=== PATIENT | male | born 1970 | race Caucasian/White ===

== ENCOUNTER → 2017-04-24 | Outpatient (CLI) | payer OTHER ==
[~2017-04-24] MED LIST: CALCIUM CITRATE1 TA6 PO; CITALOPRAM HYDR20 MG PO; DEPRESSION PILL; ETODOLAC400 MG PO; KEFLEX500 MG PO; LIDEX0.05% T; LISINOPRIL20 MG PO; MOTRIN800 MG PO; NAPROSYN500 MG PO; TRAMADOL HCL50 MG PO; ULTRAM50 MG PO; VITAMIN D50000 I3 PO
[2017-04-24 11:10] LABS: BASO % 0.5 % (0.0-1.0); EOS # 0.5 10*3/uL (0.0-0.4); EOS % 6.6 % (1.0-4.0); HEMATOCRIT 41.9 % (42.0-52.0); HEMOGLOBIN 14.4 g/dl (14.0-18.0); LYMPH # 1.9 10*3/uL (1.3-4.4); LYMPH % 24.6 % (27.0-41.0); MEAN CELL VOLUME 93.7 fl (80.0-94.0); MEAN CORPUSCULAR HGB 32.2 pg (27.0-31.0); MEAN CORPUSCULAR HGB CONC 34.4 g/dl (33.0-37.0); MEAN PLATELET VOLUME 11.1 fl (9.6-12.3); MONO # 0.6 10*3/uL (0.1-1.0); MONO % 7.5 % (3.0-9.0); NEUT # 4.6 10*3/uL (2.3-7.9); NEUT % 60.4 % (47.0-73.0); PLATELET COUNT AUTOMATED 206 10*3/uL (130-400); RED BLOOD COUNT 4.47 10*6/uL (4.50-5.90); WHITE BLOOD COUNT 7.6 10*3/uL (4.8-10.8)
[2017-04-24 11:33] LABS: ALBUMIN 4.1 gm/dl (3.1-4.5); BUN 18 mg/dl (7-24); CHLORIDE 107 mmol/L (98-107); POTASSIUM 4.8 mmol/L (3.5-5.1); SODIUM 139 mmol/L (136-145)
[2017-04-24 11:39] LABS: ALKALINE PHOSPHATASE 42 U/L (45-117); CREATININE 1.23 mg/dL (0.70-1.30); SGOT/AST 10 IU/L (3-35); SGPT/ALT 16 U/L (12-78); TOTAL PROTEIN 7.7 gm/dL (6.4-8.2)
== END | disposition home or self-care (01) ==
LOC: LAB 10:31 → CT 11:00
PROVIDERS: Urology
DX: Z12.5 Encounter for screening for malignant neoplasm of prostate (principal); K44.9 Diaphragmatic hernia without obstruction or gangrene; K76.0 Fatty (change of) liver, not elsewhere classified; K42.9 Umbilical hernia without obstruction or gangrene; I10 Essential (primary) hypertension; D40.0 Neoplasm of uncertain behavior of prostate

== ENCOUNTER 2017-09-10 05:07 | Emergency (ER) | payer OTHER ==
[~2017-09-10] VITALS: Ht 185.4 cm; Wt 93.0 kg
[2017-09-10] MEDS ORDERED: MELOXICAM15 MG PO (05:23)
[2017-09-10] MEDS ORDERED: CYCLOBENZAPRINE10 MG PO (05:24)
[2017-09-10] MEDS ORDERED: ATENOLOL50 M1 PO (05:24)
[2017-09-10] MEDS ORDERED: OYSTER SHELL C1 EAC3 PO (05:25)
[2017-09-10] MEDS ORDERED: FINASTERIDE5 M1 PO (05:26)
[2017-09-10] MEDS ORDERED: TAMSULOSIN HCL0.4 MG PO (05:26)
[2017-09-10] MEDS ORDERED: OMEGA-31000 M1 PO (05:26)
[2017-09-10] MEDS ORDERED: AMOXICILLIN500 M2 PO (05:54)
[2017-09-10] MEDS ORDERED: TAMIFLU 75MG CA75 MG PO (06:13)
== END 2017-09-10 06:27 | disposition home or self-care (01) ==
LOC: ED 05:07
DX: J09.X2 Influenza due to identified novel influenza A virus with other respiratory manifestations (principal); J40 Bronchitis, not specified as acute or chronic; J32.9 Chronic sinusitis, unspecified

== ENCOUNTER → 2017-10-22 | Outpatient (CLI) | payer OTHER ==
[~2017-10-22] MED LIST changes: +AMOXICILLIN500 M2 PO; +ATENOLOL50 M1 PO; +CYCLOBENZAPRINE10 MG PO; +FINASTERIDE5 M1 PO; +MELOXICAM15 MG PO; +OMEGA-31000 M1 PO; +OYSTER SHELL C1 EAC3 PO; +TAMIFLU 75MG CA75 MG PO; +TAMSULOSIN HCL0.4 MG PO
== END | disposition home or self-care (01) ==
LOC: MRI 13:00
DX: M51.84 Other intervertebral disc disorders, thoracic region (principal)

== ENCOUNTER → 2017-11-16 | Outpatient (CLI) | payer OTHER ==
[2017-11-16 14:31] LABS: BASO % 0.5 % (0.0-1.0); EOS # 0.1 10*3/uL (0.0-0.4); EOS % 0.8 % (1.0-4.0); HEMATOCRIT 44.8 % (42.0-52.0); HEMOGLOBIN 14.7 g/dl (14.0-18.0); LYMPH # 1.8 10*3/uL (1.3-4.4); LYMPH % 23.8 % (27.0-41.0); MEAN CELL VOLUME 92.4 fl (80.0-94.0); MEAN CORPUSCULAR HGB 30.3 pg (27.0-31.0); MEAN CORPUSCULAR HGB CONC 32.8 g/dl (33.0-37.0); MEAN PLATELET VOLUME 11.9 fl (9.6-12.3); MONO # 0.5 10*3/uL (0.1-1.0); MONO % 7.2 % (3.0-9.0); NEUT # 4.9 10*3/uL (2.3-7.9); NEUT % 67.2 % (47.0-73.0); PLATELET COUNT AUTOMATED 194 10*3/uL (130-400); RED BLOOD COUNT 4.85 10*6/uL (4.50-5.90); RED CELL DISTRI WIDTH 12.7 % (0-14.5); WHITE BLOOD COUNT 7.4 10*3/uL (4.8-10.8)
[2017-11-16 14:58] LABS: ALBUMIN 4.1 gm/dl (3.1-4.5); ALKALINE PHOSPHATASE 57 U/L (45-117); BUN 10 mg/dl (7-24); CHLORIDE 105 mmol/L (98-107); CHOLESTEROL 212 mg/dL (<200); CREATININE 1.25 mg/dL (0.70-1.30); HDL CHOLESTEROL 37 mg/dl (40-60); LDL CHOLESTEROL 137 mg/dL (9-159); POTASSIUM 4.5 mmol/L (3.5-5.1); SGOT/AST 18 IU/L (3-35); SGPT/ALT 28 U/L (12-78); SODIUM 141 mmol/L (136-145); TOTAL PROTEIN 7.8 gm/dL (6.4-8.2); TRIGLYCERIDES 192 mg/dl (<150); VLDL CHOLESTEROL 38 mg/dL (6-40)
[2017-11-16 15:05] LABS: THYROID STIM HORMONE (HS) 0.665 uIU/ml (0.358-4.75)
== END | disposition home or self-care (01) ==
LOC: LAB 14:02
PROVIDERS: Internal Medicine
DX: E11.9 Type 2 diabetes mellitus without complications (principal); E55.9 Vitamin D deficiency, unspecified; E78.2 Mixed hyperlipidemia; I10 Essential (primary) hypertension

== ENCOUNTER → 2017-12-18 | Outpatient (CLI) | payer OTHER | END | disposition home or self-care (01) | LOC: RAD 15:39 | DX: M54.5 Low back pain (principal); M53.84 Other specified dorsopathies, thoracic region; R06.00 Dyspnea, unspecified ==

== ENCOUNTER 2018-01-28 11:15 | Emergency (ER) | payer OTHER ==
[~2018-01-28] VITALS: Ht 185.4 cm; Wt 99.8 kg
[2018-01-28] MEDS ORDERED: IBUPROFEN600 MG PO (12:31)
[2018-01-28] MEDS ORDERED: DOXYCYCLINE100 M3 PO (12:31)
== END 2018-01-28 12:31 | disposition home or self-care (01) ==
LOC: ED 11:15
DX: L60.0 Ingrowing nail (principal); M79.674 Pain in right toe(s); Z79.899 Other long term (current) drug therapy

== ENCOUNTER 2019-10-08 01:40 | Emergency (ER) | payer OTHER ==
[~2019-10-08] VITALS: Ht 185.4 cm; Wt 98.9 kg
[~2019-10-08 01:40] MED LIST changes: +DOXYCYCLINE100 M3 PO; +IBUPROFEN600 MG PO
[2019-10-08 02:19] LABS: BASO % 0.1 % (0.0-1.0); EOS % 0.5 % (1.0-4.0); HEMATOCRIT 45.2 % (42.0-52.0); HEMOGLOBIN 14.9 g/dl (14.0-18.0); LYMPH # 0.9 10*3/uL (1.3-4.4); LYMPH % 11.2 % (27.0-41.0); MEAN CELL VOLUME 95.4 fl (80.0-94.0); MEAN CORPUSCULAR HGB 31.4 pg (27.0-31.0); MEAN PLATELET VOLUME 11.4 fl (9.6-12.3); MONO # 0.8 10*3/uL (0.1-1.0); MONO % 9.6 % (3.0-9.0); NEUT # 6.3 10*3/uL (2.3-7.9); NEUT % 78.2 % (47.0-73.0); PLATELET COUNT AUTOMATED 152 10*3/uL (130-400); RED BLOOD COUNT 4.74 10*6/uL (4.50-5.90); RED CELL DISTRI WIDTH 12.5 % (0-14.5)
[2019-10-08 02:35] LABS: ALBUMIN 3.7 gm/dl (3.1-4.5); ALKALINE PHOSPHATASE 43 U/L (45-117); BUN 13 mg/dl (7-24); CHLORIDE 102 mmol/L (98-107); CREATININE 1.48 mg/dL (0.70-1.30); SGOT/AST 18 IU/L (3-35); SGPT/ALT 30 U/L (12-78); SODIUM 137 mmol/L (136-145); TOTAL PROTEIN 7.5 gm/dL (6.4-8.2)
[2019-10-08 02:55] LABS: TROPONIN I < 0.015 ng/ml (<0.045)
[2019-10-08] MEDS ORDERED: OMNICEF300 MG PO (03:55)
[2019-10-08] MEDS ORDERED: VENT7GM NEB (03:55)
[2019-10-08] MEDS ORDERED: Motrin,Rufen400 MG PO (03:55)
== END 2019-10-08 04:26 | disposition home or self-care (01) ==
LOC: ED 01:40
PROVIDERS: Emergency Medicine Emergency Medical Services
DX: J20.9 Acute bronchitis, unspecified (principal); I10 Essential (primary) hypertension; Z79.899 Other long term (current) drug therapy

== ENCOUNTER 2020-11-01 18:59 | Emergency (ER) | payer OTHER ==
[~2020-11-01] VITALS: Wt 93.9 kg
[~2020-11-01 18:59] MED LIST changes: +Motrin,Rufen400 MG PO; +OMNICEF300 MG PO; +VENT7GM NEB
== END 2020-11-01 19:54 | disposition home or self-care (01) ==
LOC: ED 18:59
DX: S61.210A Laceration without foreign body of right index finger without damage to nail, initial encounter (principal); I10 Essential (primary) hypertension; Z79.899 Other long term (current) drug therapy; Z98.890 Other specified postprocedural states; X58.XXXA Exposure to other specified factors, initial encounter; Y93.89 Activity, other specified; Y92.89 Other specified places as the place of occurrence of the external cause; Y99.8 Other external cause status

== ENCOUNTER → 2021-08-22 | Outpatient (CLI) | payer OTHER | END | disposition home or self-care (01) | LOC: RAD 12:39 | PROVIDERS: ATTEND Nurse Practitioner Primary Care | DX: M41.84 Other forms of scoliosis, thoracic region (principal); M48.04 Spinal stenosis, thoracic region; G89.29 Other chronic pain ==

== ENCOUNTER 2021-08-30 21:29 | Emergency (ER) | payer OTHER ==
[~2021-08-30] VITALS: Ht 182.8 cm; Wt 113.4 kg
[2021-08-30 21:43] LABS: BASO % 0.3 % (0.0-1.0); EOS # 0.4 10*3/uL (0.0-0.4); EOS % 4.7 % (1.0-4.0); HEMATOCRIT 46.5 % (42.0-52.0); LYMPH # 2.8 10*3/uL (1.3-4.4); LYMPH % 31.3 % (27.0-41.0); MEAN CELL VOLUME 91.4 fl (80.0-94.0); MEAN CORPUSCULAR HGB 31.6 pg (27.0-31.0); MEAN CORPUSCULAR HGB CONC 34.6 g/dl (33.0-37.0); MEAN PLATELET VOLUME 10.9 fl (9.6-12.3); MONO # 0.8 10*3/uL (0.1-1.0); MONO % 9.4 % (3.0-9.0); NEUT # 4.7 10*3/uL (2.3-7.9); PLATELET COUNT AUTOMATED 223 10*3/uL (130-400); RED BLOOD COUNT 5.09 10*6/uL (4.50-5.90); RED CELL DISTRI WIDTH 12.4 % (0-14.5); WHITE BLOOD COUNT 8.8 10*3/uL (4.8-10.8)
[2021-08-30 21:56] LABS: ACT PARTIAL THROMBO TIME 27.4 SECONDS (20.0-32.1)
[2021-08-30 22:00] LABS: ALBUMIN 3.7 gm/dl (3.1-4.5); ALKALINE PHOSPHATASE 88 U/L (45-117); BUN 8 mg/dl (7-24); CHLORIDE 109 mmol/L (98-107); CREATININE 1.05 mg/dL (0.70-1.30); POTASSIUM 3.1 mmol/L (3.5-5.1); SGOT/AST 13 IU/L (3-35); SGPT/ALT 18 U/L (12-78); SODIUM 140 mmol/L (136-145); TOTAL PROTEIN 7.4 gm/dL (6.4-8.2)
== END 2021-08-31 10:18 | disposition home or self-care (01) ==
LOC: ED 21:29
PROVIDERS: Emergency Medicine
DX: R07.89 Other chest pain (principal); F10.920 Alcohol use, unspecified with intoxication, uncomplicated; E87.6 Hypokalemia; I10 Essential (primary) hypertension; Z79.899 Other long term (current) drug therapy; Y90.9 Presence of alcohol in blood, level not specified

== ENCOUNTER 2022-04-12 01:03 | Emergency (ER) | payer OTHER ==
[~2022-04-12] VITALS: Ht 185.4 cm; Wt 81.6 kg
[2022-04-12] MEDS ORDERED: CYCLOBENZAPRINE10 MG PO (04:38)
== END 2022-04-12 04:46 | disposition home or self-care (01) ==
LOC: ED 01:03
DX: S39.012A Strain of muscle, fascia and tendon of lower back, initial encounter (principal); Z79.899 Other long term (current) drug therapy; X50.9XXA Other and unspecified overexertion or strenuous movements or postures, initial encounter; Y93.89 Activity, other specified; Y92.89 Other specified places as the place of occurrence of the external cause; Y99.8 Other external cause status

== ENCOUNTER 2022-04-25 22:58 | Emergency (ER) | payer OTHER ==
[~2022-04-25] VITALS: Ht 185.4 cm; Wt 83.5 kg
== END 2022-04-26 00:11 | disposition home or self-care (01) ==
LOC: ED 22:58
DX: M17.12 Unilateral primary osteoarthritis, left knee (principal); Z79.2 Long term (current) use of antibiotics; Z79.899 Other long term (current) drug therapy

== ENCOUNTER 2022-05-20 03:18 | Emergency (ER) | payer OTHER ==
[~2022-05-20] VITALS: Ht 185.4 cm; Wt 81.2 kg
[2022-05-20] MEDS ORDERED: ONDANSETRON4 MG SL (04:32)
[2022-05-20] MEDS ORDERED: CEPACOL SORE T1 EACH MM (04:32)
[2022-05-20] MEDS ORDERED: PAXLOVID PO (04:32)
== END 2022-05-20 04:37 | disposition home or self-care (01) ==
LOC: ED 03:18
DX: U07.1 COVID-19 (principal); Z79.899 Other long term (current) drug therapy

== ENCOUNTER 2022-08-18 22:06 | Emergency (ER) | payer OTHER ==
[~2022-08-18] VITALS: Ht 185.4 cm; Wt 83.9 kg
[~2022-08-18 22:06] MED LIST changes: +CEPACOL SORE T1 EACH MM; +ONDANSETRON4 MG SL; +PAXLOVID PO
[2022-08-18] MEDS ORDERED: NAPROXEN250 MG PO (23:09)
== END 2022-08-18 23:16 | disposition home or self-care (01) ==
LOC: ED 22:06
DX: S90.111A Contusion of right great toe without damage to nail, initial encounter (principal); Z98.890 Other specified postprocedural states; W20.8XXA Other cause of strike by thrown, projected or falling object, initial encounter; Y93.89 Activity, other specified; Y92.89 Other specified places as the place of occurrence of the external cause; Y99.8 Other external cause status

== ENCOUNTER 2022-11-06 00:55 | Emergency (ER) | payer OTHER ==
[~2022-11-06] VITALS: Wt 83.9 kg
[~2022-11-06 00:55] MED LIST changes: +NAPROXEN250 MG PO
[2022-11-06] MEDS ORDERED: IBU800 M2 PO (01:13)
== END 2022-11-06 01:35 | disposition home or self-care (01) ==
LOC: ED 00:55
DX: S86.912A Strain of unspecified muscle(s) and tendon(s) at lower leg level, left leg, initial encounter (principal); Z79.899 Other long term (current) drug therapy; F17.200 Nicotine dependence, unspecified, uncomplicated; X50.9XXA Other and unspecified overexertion or strenuous movements or postures, initial encounter; Y93.89 Activity, other specified; Y92.89 Other specified places as the place of occurrence of the external cause; Y99.8 Other external cause status

== ENCOUNTER 2022-12-05 22:43 | Emergency (ER) | payer OTHER ==
[~2022-12-05 22:43] MED LIST changes: +IBU800 M2 PO
[2022-12-06 03:24] LABS: BASO % 0.4 % (0.0-1.0); EOS # 0.2 10*3/uL (0.0-0.4); EOS % 4.8 % (1.0-4.0); HEMATOCRIT 47.6 % (42.0-52.0); LYMPH % 40.8 % (27.0-41.0); MEAN CELL VOLUME 92.8 fl (80.0-94.0); MEAN CORPUSCULAR HGB 31.6 pg (27.0-31.0); MEAN PLATELET VOLUME 10.7 fl (9.6-12.3); MONO # 0.4 10*3/uL (0.1-1.0); MONO % 7.7 % (3.0-9.0); NEUT # 2.2 10*3/uL (2.3-7.9); NEUT % 46.1 % (47.0-73.0); PLATELET COUNT AUTOMATED 186 10*3/uL (130-400); RED BLOOD COUNT 5.13 10*6/uL (4.50-5.90); RED CELL DISTRI WIDTH 12.6 % (0-14.5); WHITE BLOOD COUNT 4.8 10*3/uL (4.8-10.8)
[2022-12-06 03:34] LABS: INTERNATIONAL NORM RATIO 1.1 (2.0-3.5)
[2022-12-06 03:42] LABS: ALKALINE PHOSPHATASE 56 U/L (46-116); CHLORIDE 108 mmol/L (98-107); ETHYL ALCOHOL 201.7 mg/dl (<3); LIPASE 42 U/L (12-53); POTASSIUM 4.3 mmol/L (3.4-5.1); SGPT/ALT 50 U/L (10-49); TOTAL PROTEIN 6.8 gm/dL (6.0-8.0)
[2022-12-06 03:43] LABS: BUN < 5 mg/dl (9-23)
[2022-12-06 04:25] LABS: BILIRUBIN Negative (Negative); BLOOD Negative (Negative); CLARITY Clear (Clear); COLOR Yellow (Yellow); GLUCOSE Negative (Negative); KETONE Negative (Negative); LEUKO ESTERASE Negative (Negative); NITRITE Negative (Negative); PH 5.5 (4.5-8.0); SPECIFIC GRAVITY <= 1.005 (1.001-1.030); UROBILINOGEN 0.2 E.U./dl (0.0-1.0)
[2022-12-06] MEDS ORDERED: FLOMAX0.4 MG PO (04:26)
[2022-12-06] MEDS ORDERED: CEFDINIR300 MG PO (04:26)
[2022-12-06 04:31] LABS: MUCOUS 1+; RBC 0-2 rbc/hpf (0-2); WBC 0-2 wbc/hpf (0-5)
== END 2022-12-06 04:44 | disposition home or self-care (01) ==
LOC: ED 22:43
PROVIDERS: Emergency Medicine
DX: M54.50 Low back pain, unspecified (principal); F10.129 Alcohol abuse with intoxication, unspecified; R33.9 Retention of urine, unspecified; Z79.899 Other long term (current) drug therapy; Y90.9 Presence of alcohol in blood, level not specified; W18.39XA Other fall on same level, initial encounter; Y93.89 Activity, other specified; Y92.89 Other specified places as the place of occurrence of the external cause; Y99.8 Other external cause status

== ENCOUNTER 2023-02-26 22:03 | Emergency (ER) | payer OTHER ==
[~2023-02-26] VITALS: Ht 185.4 cm; Wt 83.9 kg
[~2023-02-26 22:03] MED LIST changes: +CEFDINIR300 MG PO; +FLOMAX0.4 MG PO
== END 2023-02-27 01:05 | disposition home or self-care (01) ==
LOC: ED 22:03
DX: S86.912A Strain of unspecified muscle(s) and tendon(s) at lower leg level, left leg, initial encounter (principal); M17.12 Unilateral primary osteoarthritis, left knee; I10 Essential (primary) hypertension; Z98.890 Other specified postprocedural states; X58.XXXA Exposure to other specified factors, initial encounter; Y93.89 Activity, other specified; Y92.009 Unspecified place in unspecified non-institutional (private) residence as the place of occurrence of the external cause; Y99.8 Other external cause status

== ENCOUNTER 2023-03-15 22:27 | Emergency (ER) | payer OTHER ==
[~2023-03-15] VITALS: Ht 185.4 cm; Wt 84.4 kg
[2023-03-16 00:08] LABS: BASO % 0.4 % (0.0-1.0); EOS # 0.3 10*3/uL (0.0-0.4); EOS % 4.1 % (1.0-4.0); LYMPH # 1.6 10*3/uL (1.3-4.4); LYMPH % 22.9 % (27.0-41.0); MEAN CELL VOLUME 92.9 fl (80.0-94.0); MEAN CORPUSCULAR HGB 32.1 pg (27.0-31.0); MEAN CORPUSCULAR HGB CONC 34.6 g/dl (33.0-37.0); MEAN PLATELET VOLUME 11.2 fl (9.6-12.3); MONO # 0.6 10*3/uL (0.1-1.0); MONO % 8.5 % (3.0-9.0); NEUT # 4.5 10*3/uL (2.3-7.9); NEUT % 63.7 % (47.0-73.0); PLATELET COUNT AUTOMATED 176 10*3/uL (130-400); RED BLOOD COUNT 4.95 10*6/uL (4.50-5.90); RED CELL DISTRI WIDTH 13.2 % (0-14.5)
[2023-03-16 00:31] LABS: ALKALINE PHOSPHATASE 70 U/L (46-116); CHLORIDE 106 mmol/L (98-107); POTASSIUM 3.3 mmol/L (3.4-5.1); SGPT/ALT 17 U/L (10-49); TOTAL PROTEIN 6.9 gm/dL (6.0-8.0)
[2023-03-16 00:34] LABS: BUN < 5 mg/dl (9-23)
== END 2023-03-16 03:30 | disposition home or self-care (01) ==
LOC: ED 22:27
PROVIDERS: Emergency Medicine
DX: F43.9 Reaction to severe stress, unspecified (principal); F43.29 Adjustment disorder with other symptoms; I10 Essential (primary) hypertension; Z86.16 Personal history of COVID-19; E87.6 Hypokalemia; Z98.890 Other specified postprocedural states

== ENCOUNTER → 2023-06-01 | Outpatient (CLI) | payer OTHER | END | disposition home or self-care (01) | LOC: CARD 00:39 | PROVIDERS: ATTEND Internal Medicine Cardiovascular Disease | DX: R07.9 Chest pain, unspecified (principal) ==

== ENCOUNTER 2023-07-09 18:04 | Emergency (ER) | payer OTHER ==
[~2023-07-09] VITALS: Ht 185.4 cm; Wt 77.1 kg
[~2023-07-09 18:04] MED LIST changes: +LIPITOR40 MG PO; +TENORMIN25 M1 PO
[2023-07-09] MEDS ORDERED: ZITHROMAX250 MG PO (20:19)
== END 2023-07-09 20:23 | disposition home or self-care (01) ==
LOC: ED 18:04
DX: J40 Bronchitis, not specified as acute or chronic (principal); R11.10 Vomiting, unspecified; I10 Essential (primary) hypertension; E78.00 Pure hypercholesterolemia, unspecified; Z98.890 Other specified postprocedural states; Z20.822 Contact with and (suspected) exposure to COVID-19; F17.290 Nicotine dependence, other tobacco product, uncomplicated

== ENCOUNTER 2023-07-11 21:24 | Emergency (ER) | payer OTHER ==
[~2023-07-11] VITALS: Ht 185.4 cm; Wt 77.1 kg
[~2023-07-11 21:24] MED LIST changes: +ZITHROMAX250 MG PO
[2023-07-11 22:14] LABS: BASO % 0.3 % (0.0-1.0); EOS # 0.1 10*3/uL (0.0-0.4); EOS % 0.9 % (1.0-4.0); HEMATOCRIT 46.1 % (42.0-52.0); LYMPH % 11.1 % (27.0-41.0); MEAN CELL VOLUME 91.3 fl (80.0-94.0); MEAN CORPUSCULAR HGB 32.1 pg (27.0-31.0); MEAN CORPUSCULAR HGB CONC 35.1 g/dl (33.0-37.0); MEAN PLATELET VOLUME 10.2 fl (9.6-12.3); MONO # 1.1 10*3/uL (0.1-1.0); MONO % 11.9 % (3.0-9.0); NEUT # 6.8 10*3/uL (2.3-7.9); NEUT % 75.1 % (47.0-73.0); PLATELET COUNT AUTOMATED 299 10*3/uL (130-400); RED BLOOD COUNT 5.05 10*6/uL (4.50-5.90); RED CELL DISTRI WIDTH 12.1 % (0-14.5)
[2023-07-11 22:25] LABS: ACT PARTIAL THROMBO TIME 28.5 SECONDS (20.0-32.1)
[2023-07-11 22:35] LABS: ALKALINE PHOSPHATASE 51 U/L (46-116); BUN 12 mg/dl (9-23); CHLORIDE 103 mmol/L (98-107); LIPASE 46 U/L (12-53); POTASSIUM 3.3 mmol/L (3.4-5.1); SGPT/ALT 19 U/L (5-49)
[2023-07-11 22:36] LABS: ETHYL ALCOHOL < 3.0 mg/dl (<3)
[2023-07-12 02:09] LABS: BILIRUBIN Negative (Negative); BLOOD Negative (Negative); CLARITY Clear (Clear); COLOR Dark Yellow (Yellow); GLUCOSE Negative (Negative); KETONE 2+ (Negative); LEUKO ESTERASE Negative (Negative); NITRITE Negative (Negative); PH 5.5 (4.5-8.0); SPECIFIC GRAVITY >= 1.030 (1.001-1.030)
[2023-07-12 02:29] LABS: CALCIUM OXALATE CRYSTALS Trace; RBC 0-2 rbc/hpf (0-2); WBC 0-2 wbc/hpf (0-5)
== END 2023-07-12 03:40 | disposition short-term general hospital (02) ==
LOC: ED 21:24
PROVIDERS: Internal Medicine
DX: K56.609 Unspecified intestinal obstruction, unspecified as to partial versus complete obstruction (principal); R11.2 Nausea with vomiting, unspecified; I10 Essential (primary) hypertension; E78.00 Pure hypercholesterolemia, unspecified; Z98.890 Other specified postprocedural states

== ENCOUNTER 2023-10-01 23:00 | Emergency (ER) | payer OTHER ==
[~2023-10-01] VITALS: Ht 170.1 cm; Wt 90.7 kg
[2023-10-02 00:44] LABS: BASO % 0.5 % (0.0-1.0); EOS # 0.3 10*3/uL (0.0-0.4); EOS % 4.9 % (1.0-4.0); HEMATOCRIT 44.4 % (42.0-52.0); LYMPH # 2.2 10*3/uL (1.3-4.4); LYMPH % 35.1 % (27.0-41.0); MEAN CELL VOLUME 93.9 fl (80.0-94.0); MEAN CORPUSCULAR HGB 31.3 pg (27.0-31.0); MEAN CORPUSCULAR HGB CONC 33.3 g/dl (33.0-37.0); MEAN PLATELET VOLUME 10.8 fl (9.6-12.3); MONO # 0.6 10*3/uL (0.1-1.0); NEUT # 3.2 10*3/uL (2.3-7.9); PLATELET COUNT AUTOMATED 242 10*3/uL (130-400); RED BLOOD COUNT 4.73 10*6/uL (4.50-5.90); RED CELL DISTRI WIDTH 12.8 % (0-14.5); WHITE BLOOD COUNT 6.4 10*3/uL (4.8-10.8)
[2023-10-02 01:12] LABS: BUN 6 mg/dl (9-23); CHLORIDE 102 mmol/L (98-107); ETHYL ALCOHOL 296.5 mg/dl (<3); LIPASE 43 U/L (12-53); POTASSIUM 3.8 mmol/L (3.4-5.1)
[2023-10-02 11:20] LABS: URINE AMPHETAMINES Negative (1000ng/ml); URINE BARBITURATES Negative (200ng/ml); URINE BENZODIAZEPINES Negative (200ng/ml); URINE CANNABINOIDS (THC) Negative (50ng/ml); URINE COCAINE Negative (300ng/ml); URINE METHADONE Negative (300ng/ml); URINE OPIATES Negative (300ng/ml); URINE PHENCYCLIDINE Negative (25ng/ml)
[2023-10-02 11:22] LABS: BILIRUBIN Negative (Negative); BLOOD Negative (Negative); CLARITY Clear (Clear); COLOR Yellow (Yellow); GLUCOSE Negative (Negative); KETONE Negative (Negative); LEUKO ESTERASE Negative (Negative); NITRITE Negative (Negative); PH 5.5 (4.5-8.0); UROBILINOGEN 0.2 E.U./dl (0.0-1.0)
[2023-10-02 11:28] LABS: HYALINE CAST 0-2; WBC 0-2 wbc/hpf (0-5)
== END 2023-10-02 17:08 | disposition home or self-care (01) ==
LOC: ED 23:00
PROVIDERS: Internal Medicine
DX: F10.129 Alcohol abuse with intoxication, unspecified (principal); I10 Essential (primary) hypertension; E78.00 Pure hypercholesterolemia, unspecified; Z98.890 Other specified postprocedural states; Z79.899 Other long term (current) drug therapy; Y90.0 Blood alcohol level of less than 20 mg/100 ml

== ENCOUNTER 2023-10-15 19:51 | Emergency (ER) | payer OTHER ==
[~2023-10-15] VITALS: Ht 185.4 cm; Wt 86.6 kg
[2023-10-15] MEDS ORDERED: Lidocaine Hydrochloride 2% 10 ML AMP SC ONE (20:05)
[2023-10-15] MEDS ORDERED: Tdap Vaccine 0.5 ML SYR (Adult Vaccine) IM ONE (20:10)
[2023-10-15] MEDS ORDERED: Bacitracin Zinc/Neomycin/Pol 15 GM TUBE T ONE (20:25)
== END 2023-10-15 20:45 | disposition home or self-care (01) ==
LOC: ED 19:51
DX: S61.214A Laceration without foreign body of right ring finger without damage to nail, initial encounter (principal); F32.A Depression, unspecified; I10 Essential (primary) hypertension; E78.5 Hyperlipidemia, unspecified; E78.00 Pure hypercholesterolemia, unspecified; Z98.890 Other specified postprocedural states; F10.90 Alcohol use, unspecified, uncomplicated; W22.8XXA Striking against or struck by other objects, initial encounter; Y93.89 Activity, other specified; Y92.89 Other specified places as the place of occurrence of the external cause; Y99.8 Other external cause status

== ENCOUNTER → 2023-10-19 | Outpatient (CLI) | payer OTHER | END | disposition home or self-care (01) | LOC: CARD 10-14 07:30 | PROVIDERS: ATTEND Internal Medicine | DX: I07.1 Rheumatic tricuspid insufficiency (principal); R06.00 Dyspnea, unspecified; I70.0 Atherosclerosis of aorta ==

== ENCOUNTER 2024-03-23 06:31 | Emergency (ER) | payer BC, OTHER ==
[~2024-03-23] VITALS: Ht 185.4 cm; Wt 82.6 kg
== END 2024-03-23 08:12 | disposition home or self-care (01) ==
LOC: ED 06:31
DX: S90.31XA Contusion of right foot, initial encounter (principal); I10 Essential (primary) hypertension; E78.00 Pure hypercholesterolemia, unspecified; Z98.890 Other specified postprocedural states; W20.8XXA Other cause of strike by thrown, projected or falling object, initial encounter; Y93.89 Activity, other specified; Y92.009 Unspecified place in unspecified non-institutional (private) residence as the place of occurrence of the external cause; Y99.8 Other external cause status

== ENCOUNTER 2024-04-29 23:15 | Emergency (ER) | payer BC, OTHER ==
[~2024-04-29] VITALS: Ht 185.4 cm; Wt 83.9 kg
[2024-04-29] MEDS ORDERED: Dicyclomine Hydrochloride 20 MG/10 ML OSYR PO STA (23:34)
[2024-04-29] MEDS ORDERED: MG-AL HYDROXIDE/SIMETICONE 30 ML UDC PO STA (23:34)
[2024-04-29] MEDS ORDERED: Lidocaine Hydrochloride 15 ML UDC PO STA (23:34)
[2024-04-29 23:39] LABS: BASO % 0.6 % (0.0-1.0); EOS # 0.3 10*3/uL (0.0-0.4); EOS % 4.7 % (1.0-4.0); HEMATOCRIT 48.5 % (42.0-52.0); LYMPH # 1.9 10*3/uL (1.3-4.4); LYMPH % 27.8 % (27.0-41.0); MEAN CELL VOLUME 95.3 fl (80.0-94.0); MEAN CORPUSCULAR HGB CONC 33.6 g/dl (33.0-37.0); MEAN PLATELET VOLUME 10.8 fl (9.6-12.3); MONO # 0.5 10*3/uL (0.1-1.0); NEUT # 4.1 10*3/uL (2.3-7.9); NEUT % 59.3 % (47.0-73.0); PLATELET COUNT AUTOMATED 220 10*3/uL (130-400); RED BLOOD COUNT 5.09 10*6/uL (4.50-5.90); RED CELL DISTRI WIDTH 12.4 % (0-14.5)
[2024-04-29 23:58] LABS: BUN 7 mg/dl (9-23); CHLORIDE 107 mmol/L (98-107); POTASSIUM 3.2 mmol/L (3.4-5.1)
== END 2024-04-30 00:47 | disposition home or self-care (01) ==
LOC: ED 23:15
PROVIDERS: Internal Medicine
DX: K21.9 Gastro-esophageal reflux disease without esophagitis (principal); R06.02 Shortness of breath; E87.6 Hypokalemia; I10 Essential (primary) hypertension; E78.00 Pure hypercholesterolemia, unspecified; Z98.890 Other specified postprocedural states

== ENCOUNTER 2024-05-31 19:57 | Emergency (ER) | payer BC, OTHER ==
[~2024-05-31] VITALS: Ht 185.4 cm; Wt 83.9 kg
[2024-05-31] MEDS ORDERED: IBUPROFEN 600 MG TAB PO ONE (20:10)
[2024-05-31] MEDS ORDERED: ZANAFLEX4 MG PO (21:49)
[2024-05-31] MEDS ORDERED: IBUPROFEN600 MG PO (21:49)
== END 2024-05-31 22:37 | disposition home or self-care (01) ==
LOC: ED 19:57
DX: S46.911A Strain of unspecified muscle, fascia and tendon at shoulder and upper arm level, right arm, initial encounter (principal); I10 Essential (primary) hypertension; F32.A Depression, unspecified; E78.5 Hyperlipidemia, unspecified; E78.00 Pure hypercholesterolemia, unspecified; F10.90 Alcohol use, unspecified, uncomplicated; Z98.890 Other specified postprocedural states; X50.0XXA Overexertion from strenuous movement or load, initial encounter; Y93.89 Activity, other specified; Y92.89 Other specified places as the place of occurrence of the external cause; Y99.0 Civilian activity done for income or pay

== ENCOUNTER 2024-09-21 19:27 | Emergency (ER) | payer BC, OTHER ==
[~2024-09-21] VITALS: Ht 185.4 cm; Wt 83.9 kg
[~2024-09-21 19:27] MED LIST changes: +ZANAFLEX4 MG PO
== END 2024-09-21 21:53 | disposition home or self-care (01) ==
LOC: ED 19:27
DX: S86.912A Strain of unspecified muscle(s) and tendon(s) at lower leg level, left leg, initial encounter (principal); I10 Essential (primary) hypertension; E78.00 Pure hypercholesterolemia, unspecified; Z98.890 Other specified postprocedural states; W00.0XXA Fall on same level due to ice and snow, initial encounter; Y93.89 Activity, other specified; Y92.009 Unspecified place in unspecified non-institutional (private) residence as the place of occurrence of the external cause; Y99.8 Other external cause status

== ENCOUNTER 2024-11-30 20:51 | Emergency (ER) | payer OTHER ==
[~2024-11-30] VITALS: Ht 187.9 cm; Wt 95.3 kg
[2024-11-30 21:11] LABS: BASO % 0.4 % (0.0-1.0); EOS # 0.3 10*3/uL (0.0-0.4); EOS % 5.3 % (1.0-4.0); HEMATOCRIT 44.3 % (42.0-52.0); MEAN CELL VOLUME 93.9 fl (80.0-94.0); MEAN CORPUSCULAR HGB 31.8 pg (27.0-31.0); MEAN CORPUSCULAR HGB CONC 33.9 g/dl (33.0-37.0); MEAN PLATELET VOLUME 10.8 fl (9.6-12.3); MONO # 0.5 10*3/uL (0.1-1.0); MONO % 9.2 % (3.0-9.0); NEUT # 2.5 10*3/uL (2.3-7.9); NEUT % 50.6 % (47.0-73.0); PLATELET COUNT AUTOMATED 184 10*3/uL (130-400); RED BLOOD COUNT 4.72 10*6/uL (4.50-5.90); RED CELL DISTRI WIDTH 12.6 % (0-14.5); WHITE BLOOD COUNT 4.9 10*3/uL (4.8-10.8)
[2024-11-30 21:33] LABS: ALKALINE PHOSPHATASE 49 U/L (46-116); BUN 7 mg/dl (9-23); CHLORIDE 108 mmol/L (98-107); POTASSIUM 3.5 mmol/L (3.4-5.1); SGPT/ALT 19 U/L (5-49); TOTAL PROTEIN 6.6 gm/dL (6.0-8.0)
[2024-11-30] MEDS ORDERED: Thiamine 200 MG/2 ML VIAL IV ONE (21:40)
[2024-11-30] MEDS ORDERED: SODIUM CHLORIDE 0.9% 1,000 ML IV ONE (21:40)
[2024-11-30 22:35] LABS: BILIRUBIN Negative (Negative); BLOOD Negative (Negative); CLARITY Clear (Clear); COLOR Yellow (Yellow); GLUCOSE Negative (Negative); KETONE Negative (Negative); LEUKO ESTERASE Negative (Negative); NITRITE Negative (Negative); SPECIFIC GRAVITY <= 1.005 (1.001-1.030); UROBILINOGEN 0.2 E.U./dl (0.0-1.0)
[2024-11-30 23:16] LABS: WBC 0-2 wbc/hpf (0-5)
== END 2024-12-01 10:45 | disposition home or self-care (01) ==
LOC: ED 20:51
PROVIDERS: Internal Medicine
DX: F10.129 Alcohol abuse with intoxication, unspecified (principal); Z04.3 Encounter for examination and observation following other accident; Z79.899 Other long term (current) drug therapy

== ENCOUNTER → 2025-03-25 | Emergency (ER) | payer OTHER ==
[~2025-03-25] VITALS: Wt 83.9 kg
[2025-03-25 01:24] LABS: BASO # 0.0 10*3/uL (0.0-0.1); BASO % 0.5 % (0.0-1.0); EOS # 0.3 10*3/uL (0.0-0.4); EOS % 5.4 % (1.0-4.0); MEAN CELL VOLUME 97.1 fl (80.0-94.0); MEAN CORPUSCULAR HGB 32.1 pg (27.0-31.0); MEAN PLATELET VOLUME 10.3 fl (9.6-12.3); MONO # 0.7 10*3/uL (0.1-1.0); MONO % 11.1 % (3.0-9.0); NEUT # 3.6 10*3/uL (2.3-7.9); NEUT % 59.0 % (47.0-73.0); NUCLEATED RED BLOOD CELL 0.0 % (0.0-0.0); NUCLEATED RED BLOOD CELL 0.0 10*3/uL (0.0-0.0); PLATELET COUNT AUTOMATED 220 10*3/uL (130-400); RED CELL DISTRI WIDTH 12.7 % (0-14.5)
[2025-03-25 01:47] LABS: BUN 8 mg/dl (9-23)
== END ==
LOC: ED 00:19
PROVIDERS: Emergency Medicine
DX: R06.02 Shortness of breath (principal); I10 Essential (primary) hypertension; E78.00 Pure hypercholesterolemia, unspecified